=== PATIENT | male | born 1945 | race Caucasian/White ===

== ENCOUNTER → 2017-02-10 | Outpatient (CLI) | payer MEDICARE, OTHER ==
[~2017-02-10] MED LIST: ASPIRIN E.C. 8181 MG PO; FERROUS SU325 MG/TAB PO; FOLIC ACID PO; VITAMIN C500 MG PO
== END ==
LOC: COL.RAD 11:56
DX: Z12.2 Encounter for screening for malignant neoplasm of respiratory organs (principal); R91.1 Solitary pulmonary nodule; Z87.891 Personal history of nicotine dependence

== ENCOUNTER → 2017-08-07 | Outpatient (CLI) | payer MEDICARE, OTHER | LOC: COL.RAD 07:30 | DX: I71.4 Abdominal aortic aneurysm, without rupture (principal) ==

== ENCOUNTER → 2017-08-21 | Outpatient (CLI) | payer MEDICARE, OTHER | LOC: COL.RAD 11:19 | DX: I71.4 Abdominal aortic aneurysm, without rupture (principal); K42.9 Umbilical hernia without obstruction or gangrene | CPT/HCPCS: Q9967 ==

== ENCOUNTER → 2018-08-10 | Outpatient (CLI) | payer MEDICARE, OTHER | LOC: COL.RAD 07:10 | DX: I71.4 Abdominal aortic aneurysm, without rupture (principal); Z87.891 Personal history of nicotine dependence ==

== ENCOUNTER 2019-09-07 06:33 | Day surgery (SDC) | payer MEDICARE, OTHER ==
[~2019-09-07] VITALS: Ht 175.3 cm; Wt 105.0 kg
[2019-09-07 07:17] VITALS: BP 159/93; PULSE 62; TEMP 97
--- NOTE | 2019-09-07 07:35 | NUR ---
TO RM AT 0646- CALL LIGHT IN REACH AT BEDSIDE
[2019-09-07] MEDS ORDERED: NORCO 325 MG-51 TAB PO (09:49)
[2019-09-07 10:15] VITALS: BP 121/70; PULSE 57; TEMP 98.2
--- NOTE | 2019-09-07 10:15 | NUR ---
TO RM 8 PER CART FROM PACU. ALERT ORIENTED X3, TALKING TO STAFF AND . DRESSINGS CLEAN DRY AND INTACT. C/O PAIN 2/10 AND DENIES NEED FOR PAIN MED AT THIS TIME.
[2019-09-07 10:30] VITALS: BP 135/95; PULSE 71
--- NOTE | 2019-09-07 10:30 | NUR ---
RECEIVED GRAPE JUICE AND MUFFIN
[2019-09-07 10:45] VITALS: BP 134/92; PULSE 63
--- NOTE | 2019-09-07 10:45 | NUR ---
ATE 100% AND TOLERATED WELL. RECEIVED 2ND GLASS OF GRAPE JUICE. CONTINUES TO DENY NEED FOR PAIN MED.
[2019-09-07 10:48] VITALS: BP 121/81; PULSE 69
--- NOTE | 2019-09-07 11:00 | NUR ---
UP AMBULATED TO BATHROOM WITH STAND BY ASSIST. VOIDED AND TOLERATED WELL.
--- NOTE | 2019-09-07 11:10 | NUR ---
RECEIVED DISCHARGE INSTRUCTIONS AND VERBALIZED UNDERSTANDING. DISCONTINUED IV AND INT- CATHETER INTACT. PATIENT GETTING DRESSED
--- NOTE | 2019-09-07 11:20 | NUR ---
DISCHARGED PER WC BY NURSING STAFF TO PRIVATE CAR IN CARE OF - SHUBHAM.
== END 2019-09-07 12:25 | disposition home or self-care (01) ==
LOC: SDCO 06:33
DX: K81.1 Chronic cholecystitis (principal); K42.9 Umbilical hernia without obstruction or gangrene; J44.9 Chronic obstructive pulmonary disease, unspecified; Z87.891 Personal history of nicotine dependence; Z96.652 Presence of left artificial knee joint; Z95.828 Presence of other vascular implants and grafts; Z79.899 Other long term (current) drug therapy; Z79.82 Long term (current) use of aspirin
CPT/HCPCS: C1781; J0690; J1100; J1885; J2405; J2704; J2710; J3010; J7120

== ENCOUNTER → 2021-03-13 | Outpatient (CLI) | payer MEDICARE, OTHER ==
[~2021-03-13] MED LIST changes: +COZAAR 50MG50 MG/TAB PO; +FLOMAX 0.40.4 MG/CAP PO; +HCTZ12.5TAB PO; +MOBIC15 MG PO; +NORCO 325 MG-51 TAB PO
[2021-03-13 08:30] LABS: CREATININE, serum 1.09 (0.66-1.25)
== END ==
LOC: COL.RAD 07:52
PROVIDERS: Urology
DX: N40.1 Benign prostatic hyperplasia with lower urinary tract symptoms (principal); N32.1 Vesicointestinal fistula; N39.0 Urinary tract infection, site not specified; K74.69 Other cirrhosis of liver; Z90.49 Acquired absence of other specified parts of digestive tract; Z95.828 Presence of other vascular implants and grafts
CPT/HCPCS: Q9967

== ENCOUNTER 2021-04-24 08:34 | Day surgery (SDC) | payer MEDICARE, OTHER ==
[~2021-04-24] VITALS: Ht 175.3 cm; Wt 114.0 kg
[~2021-04-24 08:34] MED LIST changes: -COZAAR 50MG50 MG/TAB PO; -FLOMAX 0.40.4 MG/CAP PO; -HCTZ12.5TAB PO; -MOBIC15 MG PO
[2021-04-24 09:32] VITALS: BP 129/83; PULSE 80; TEMP 97.8
[2021-04-24] MEDS ORDERED: COZAAR 50MG50 MG/TAB PO (09:39)
[2021-04-24] MEDS ORDERED: HCTZ12.5TAB PO (09:39)
[2021-04-24] MEDS ORDERED: FLOMAX 0.40.4 MG/CAP PO (09:39)
[2021-04-24] MEDS ORDERED: MOBIC15 MG PO (09:40)
--- NOTE | 2021-04-24 09:40 | NUR ---
TO RM 4 AT 0908- CALL LIGHT IN REACH AT BEDSIDE.
[2021-04-24 11:20] VITALS: BP 105/80; PULSE 74; TEMP 98.2
--- NOTE | 2021-04-24 11:20 | NUR ---
TO RM 4 PER CART FROM ENDOSCOPY. ALERT ORIENTED X3, TALKING TO AND STAFF. AMBULATED TO RECLINER AND TOLERATED WELL. RECEIVED OJ AND MUFFIN.
[2021-04-24 11:35] VITALS: BP 121/78; PULSE 75
--- NOTE | 2021-04-24 11:35 | NUR ---
ATE 100% AND TOLERATED WELL.
--- NOTE | 2021-04-24 11:50 | NUR ---
DR WALKER INTO TALK WITH PATIENT AND HIS .
--- NOTE | 2021-04-24 12:00 | NUR ---
RECEIVED DISCHARGE INSTRUCTIONS AND VERBALIZED UNDERSTANDING. DISCONTINUED IV AND INT- CATHETER INTACT.
--- NOTE | 2021-04-24 12:10 | NUR ---
DISCHARGED PER WC BY NURSING STAFF TO PRIVATE CAR IN CARE OF SHUBHAM.
== END 2021-04-24 12:15 | disposition home or self-care (01) ==
LOC: SDCO 08:34
DX: Z12.11 Encounter for screening for malignant neoplasm of colon (principal); D12.3 Benign neoplasm of transverse colon; K64.0 First degree hemorrhoids; K64.4 Residual hemorrhoidal skin tags; K57.30 Diverticulosis of large intestine without perforation or abscess without bleeding; K63.89 Other specified diseases of intestine; J44.9 Chronic obstructive pulmonary disease, unspecified; I10 Essential (primary) hypertension; Z20.822 Contact with and (suspected) exposure to COVID-19; G47.33 Obstructive sleep apnea (adult) (pediatric); M19.90 Unspecified osteoarthritis, unspecified site; Z79.899 Other long term (current) drug therapy; Z87.891 Personal history of nicotine dependence
CPT/HCPCS: J2704; J7120

== ENCOUNTER 2021-05-08 10:20 | Inpatient (IN) | payer MEDICARE, OTHER ==
[~2021-05-08] VITALS: Ht 175.3 cm; Wt 112.5 kg
[~2021-05-08 10:20] MED LIST changes: +COZAAR 50MG50 MG/TAB PO; +FLOMAX 0.40.4 MG/CAP PO; +HCTZ12.5TAB PO; +MOBIC15 MG PO
[2021-06-19] VITALS (10 sets, daily range): BP systolic 120–158; BP diastolic 77–91; PULSE 69–85; TEMP 98.5–99.1
--- NOTE | 2021-06-19 12:22 | NUR ---
TO RM 7 AT 1144- CALL LIGHT IN REACH AT BEDSIDE.
--- NOTE | 2021-06-19 18:43 | NUR ---
Pt recently arrived to the floor from Pacu. He is alert and oriented although drowsy. Bandaids to abd with 2 of them leaking, bandaids removed, skin cleaned and new bandaids applied. Midline incision CDI. SCDs on bilaterally. Pt has no complaints of pain at this time. at bedside
--- NOTE | 2021-06-19 19:00 | NUR ---
Initial assessment done- on post op vitals- VSS, pt alert/oriented/drowsy- denies paimn, abd soft, hypoactive bowel sounds,, taking liquids/tolerating without nausea, doyle with clear yellow urine, abd lap sites x5 w/bandaids- all dry except the one to the right of belly button-- bandaid removed by previous shift and small gauze dressing applied- has some drainage- will continure to watch. SCD,s on
--- NOTE | 2021-06-19 21:00 | NUR ---
Abd lap site to the right of belly button with bloody drainage-- new dressing applied at this time- no active bleeding seen from incision
[2021-06-20 04:09] VITALS: BP 126/73; PULSE 70; TEMP 98.4
--- NOTE | 2021-06-20 05:30 | NUR ---
Quiet night-- VSS, slept well with home CPAP on all night. States abd pain 2/,States the tylenol/motrin combination is working well for pain control- Had 900cc clear yellow urine from Salazar. Abd rounded-soft,denies flatus-active bowel sounds, no drainage from lap site since new dressing was applied earlier- so new bandaid applied at this time- all sites clean and dry- Taking some clear liquids without nausea
[2021-06-20 06:59] LABS: BASO % 0.1 % (0.0-2.0); GRAN # 8.7 (1.4-6.5); GRAN % 81.5 % (42.2-75.2); HEMOGLOBIN 11.9 g/dl (13.5-18.0); LYMPH % 9.1 % (20.0-51.0); MEAN CELL VOLUME 97 fl (80.0-100.0); MEAN CORPUSCULAR HEMOGLOBIN 32 pg (27.0-31.0); MEAN CORPUSCULAR HGB CONC 33 g/dl (33.0-37.0); MEAN PLATELET VOLUME 10.2 fl (7.4-10.4); MONO % 8.9 % (1.7-9.3); PLATELET COUNT 166 K/mm3 (130-400); RED BLOOD COUNT 3.75 M/mm3 (4.20-5.60); REDCELL DISTRIBUTION WIDTH-CV 14.6 % (11.5-14.5)
[2021-06-20 07:08] LABS: HEMATOCRIT 36.4 % (42.0-52.0)
[2021-06-20 07:14] LABS: CALCIUM 8.3 mg/dL (8.4-10.2); CREATININE, serum 1.2 (0.66-1.25); MAGNESIUM 1.9 mg/dL (1.6-2.3); PHOSPHOROUS 3.6 mg/dL (2.5-4.5); POTASSIUM 4.2 mmol/L (3.4-5.0)
[2021-06-20 07:27] VITALS: BP 110/70; PULSE 71; TEMP 98
--- NOTE | 2021-06-20 08:00 | NUR ---
PATIENT IS ALERT AND ORIENTED X4. PATIENT HAS 5 BANDAIDS TO ROBOTIC LAP SITES. PATIENT HAS IV TO LEFT FOREARM INT. DIET OF CLEAR LIQUIDS BEING TOLERATED BY PATIENT. PATIENT AMBULATED DOWN HALLWAY THIS AM. NO FURTHER NEEDS AT THIS TIME. HEAD TO TOE ASSESSMENT COMPLETE. CALL LIGHT WITHIN REACH.
--- NOTE | 2021-06-20 10:38 | NUR ---
Sw met with pt( present) who stated his preference to return home once medically stable. The pt lives at home with his , Ann (ph [phone]). The pt is independent on all ADLs, still drives and uses a CPAP machine at home (present in room). The pt informed Sw that he has a DPOA-HC and has brought it in many times to the hospital. The pt PCP is Cheyenne Bhagat and gets his medications from [facility]. The pt has never used any HH services before. No other needs stated at this time. Sw to await further recommendations and follow up as needed. D/C: Home
[2021-06-20 12:00] VITALS: BP 132/81; PULSE 68; TEMP 97.6
[2021-06-20 15:35] VITALS: BP 104/71; PULSE 78; TEMP 98
--- NOTE | 2021-06-20 18:03 | NUR ---
PATIENT HAD BOWEL MOVEMENT, INCONTINENT, CARE WAS PROVIDED.AMBULATING HALLS THROUGHOUT THE DAY. PATIENT TOLERATING DIET WELL. IV TO INT. BY BEDSIDE THROUGHOUT THE DAY.
[2021-06-20 19:52] VITALS: BP 112/58; PULSE 60; TEMP 99
--- NOTE | 2021-06-20 20:00 | NUR ---
Report received, assumed care for commission associate. Assessment complete. A&Ox3. Denies pain/nausea/shortness of breath. VS stable. Tolerating diet. INT to left forearm flushes without difficulty. States he hasnt had any other loose stools thus far. Lap sites x5-bandaids with scant amount of old drainage. Low transverse abdominal incision with gauze/medipore-CDI. Salazar cath with clear yellow urine. SCDs bilat. IS at bedside-encouraged use. Denies current needs. Call light in reach. Will monitor.
[2021-06-21 00:14] VITALS: BP 113/67; PULSE 73; TEMP 98.3
[2021-06-21 04:33] VITALS: BP 113/71; PULSE 72; TEMP 98.1
--- NOTE | 2021-06-21 05:09 | NUR ---
Rested well this shift. Denied pain/nausea/shortness of breath. VS remained stable. Tylenol/motrin adequate for pain control. Dressings remain CDI. Salazar cath with clear yellow urine. Denied an more loose stools. Tolerating diet. Denies current needs. call light in reach. WIll monitor.
--- NOTE | 2021-06-21 07:30 | NUR ---
Patient sitting up in chair. Reports a loose stool this am. No Incontience. Low fiber breakfast ordered. Abdomen soft, passing flatus. Doyle to DD with yellow clear urine. Education provided for doyle removal. Int. Activity encouraged.
[2021-06-21 07:52] VITALS: BP 109/67; PULSE 85; TEMP 98.4
[2021-06-21 11:42] VITALS: BP 109/71; PULSE 67; TEMP 98.4
--- NOTE | 2021-06-21 11:43 | NUR ---
Patient sitting up in chair with at bedside. Hands on doyle education given to both. Patient not interest in leg bag. Will monitor.
--- NOTE | 2021-06-21 13:28 | NUR ---
Patient sleeping soundly. Patient at bedside.
[2021-06-21 16:13] VITALS: BP 124/75; PULSE 80; TEMP 98.5
[2021-06-21] MEDS ORDERED: NORCO 325 MG-51 TAB PO (17:10)
--- NOTE | 2021-06-21 18:55 | NUR ---
Patient ready for discharge. rounded this evening. Discharge paperwork reviewed. Int dc. We reviewed diet & activity restrictions. Incision cares reviewed. Medication list, last dose taken & pain medication reviewed. Denies questions about doyle cath & has been empting doyle independently this afternoon. Patient and his deny any questions or concerns & know the importance of calling doctors office if any questions arise. Patient wheeld out with all belongings.
== END 2021-06-21 19:00 | disposition home or self-care (01) | DRG 330 ==
LOC: SURG 06-06 07:30 → INPTSU 06-19 11:31 → SURG 06-19 11:31 → MEDICAL 06-20 11:25 → SURG 06-20 11:25
PROVIDERS: ADMIT Surgery
PROC: 0DNU4ZZ Release Omentum, Percutaneous Endoscopic Approach (ICD-10-PCS; 2021-06-19)
PROC: 8E0W4CZ Robotic Assisted Procedure of Trunk Region, Percutaneous Endoscopic Approach (ICD-10-PCS; 2021-06-19)
PROC: 0DTN4ZZ Resection of Sigmoid Colon, Percutaneous Endoscopic Approach (ICD-10-PCS; principal; 2021-06-19 13:30)
DX: K57.32 Diverticulitis of large intestine without perforation or abscess without bleeding (principal); N32.1 Vesicointestinal fistula
CPT/HCPCS: A4314; A9284; J0330; J0690; J1100; J1170; J1650; J2250; J2370; J2405; J2704; J2795; J3010; J7120

== ENCOUNTER 2021-12-17 08:34 | Inpatient (IN) | payer MEDICARE, OTHER ==
[~2021-12-17] VITALS: Ht 175.3 cm; Wt 111.0 kg
[2021-12-17 09:11] LABS: ARTERIAL BLD GAS O2 SATURATION 97.1 % (92-100); ARTERIAL BLD GAS TCO2 CT 21.6; ARTERIAL BLOOD GAS BASE EXCESS -1.2 (-2-2); ARTERIAL BLOOD GAS HCO3 20.7 meq/L (22-26); ARTERIAL BLOOD GAS PCO2 28.1 mmHg (35-45); ARTERIAL BLOOD GAS PO2 81.6 mmHg (80-100); ARTERIAL BLOOD GAS pH 7.49 (7.35-7.45)
[2021-12-17 09:31] LABS: HEMATOCRIT 41.1 % (42.0-52.0); HEMOGLOBIN 14.7 g/dl (13.5-18.0); MEAN CELL VOLUME 84 fl (80.0-100.0); MEAN CORPUSCULAR HEMOGLOBIN 30 pg (27-31); MEAN CORPUSCULAR HGB CONC 36 g/dl (33.0-37.0); MEAN PLATELET VOLUME 9.3 fl (7.4-10.4); PLATELET COUNT 172 K/mm3 (130-400); RED BLOOD COUNT 4.89 M/mm3 (4.20-5.60); REDCELL DISTRIBUTION WIDTH-CV 13.8 % (11.5-14.5)
[2021-12-17 09:49] LABS: ALBUMIN 2.9 gm/dL (3.4-4.8); BILIRUBIN,TOTAL 1.8 mg/dL (0.2-1.2); CALCIUM 8.6 mg/dL (8.4-10.2); CREATININE, serum 1.07 mg/dL (0.72-1.25); POTASSIUM 3.7 mmol/L (3.5-4.5)
[2021-12-17 09:58] LABS: TROPONIN-I 0.05 ng/mL (0.00-0.033)
[2021-12-17 10:06] LABS: BAND 8 % (0-10); LYMPHOCYTE 5 % (20.0-51.0); NEUTROPHILS 86 % (42.0-75.2)
[2021-12-17 10:07] LABS: PLATELET ESTIMATE NORMAL (NORMAL)
[2021-12-17 12:05] LABS: C-REACTIVE PROTEIN 11.22 mg/dL (0.00-0.50)
--- NOTE | 2021-12-17 13:04 | NUR ---
CALLED CRITICAL LAB VALUE 3HR TROPONIN: 0.[address] WELLINGTON
[2021-12-17 17:06] VITALS: BP 130/77; PULSE 91; TEMP 98.3
--- NOTE | 2021-12-17 19:38 | NUR ---
PT HAD AN UNEVENTFUL AFTERNOON. RECEIVED ALL DOSES OF MEDICATIONS ORDERED BY THE PROVIDER AT ADMIT. THE PATIENT IS NOW ON 10L HFNC WITH A BUBBLER. THE PATIENT DENIES ANY ISSUES AT THIS TIME. NO PAIN, AND NO DIFFICULTY BREATHING. NO FURTHER CONCERNS.
[2021-12-17 21:27] VITALS: BP 120/76; PULSE 89; TEMP 97.8
[2021-12-18] VITALS (8 sets, daily range): BP systolic 103–145; BP diastolic 79–90; PULSE 82–147; TEMP 97.5–98.3
--- NOTE | 2021-12-18 03:44 | NUR ---
patient c/o not sleeping well, call placed to Kary ABAD- see new order, udpated patient on new order and plan of care, O2@10L per NC in use, call pacheco w/i reach, will continue to monitor.
[2021-12-18 06:38] LABS: HEMATOCRIT 39.7 % (42.0-52.0); HEMOGLOBIN 13.8 g/dl (13.5-18.0); MEAN CELL VOLUME 86 fl (80.0-100.0); MEAN CORPUSCULAR HEMOGLOBIN 30 pg (27-31); MEAN CORPUSCULAR HGB CONC 35 g/dl (33.0-37.0); PLATELET COUNT 176 K/mm3 (130-400); REDCELL DISTRIBUTION WIDTH-CV 13.9 % (11.5-14.5)
[2021-12-18 06:55] LABS: ALBUMIN 2.7 gm/dL (3.4-4.8); C-REACTIVE PROTEIN 9.07 mg/dL (0.00-0.50); CALCIUM 8.8 mg/dL (8.4-10.2); CREATININE, serum 1.07 mg/dL (0.72-1.25); POTASSIUM 3.8 mmol/L (3.5-4.5); TOTAL PROTEIN 6.5 gm/dL (6.2-8.1)
--- NOTE | 2021-12-18 07:04 | NUR ---
PT SLEEPING AT THIS TIME. RECEIVED REPORT FROM NICOLE FRANKEL THAT THE PATIENT HAD RECEIVED A LATE IN THE NIGHT DOSE OF MELATONIN.
[2021-12-18 07:18] LABS: THYROID STIMULATING HORMONE 0.631 uIU/mL (0.350-4.940)
[2021-12-18 08:00] LABS: BAND 6 % (0-10); LYMPHOCYTE 2 % (20.0-51.0); NEUTROPHILS 89 % (42.0-75.2); PLATELET ESTIMATE NORMAL (NORMAL)
--- NOTE | 2021-12-18 12:52 | NUR ---
WHEN GIVING 1200 MEDICATION, THE PATIENT STATES THAT HE IS SEEING BLACK BUGS. HE STATES THAT HE FEELS THOUGH HE MAY BE DELERIOUS FROM LACK OF SLEEP. HOWEVER, AFTER DISCUSSION WITH DR. WELLINGTON, WE WILL BE DOING AN ABG, TO VERIFY IF IT IS DUE TO HYPOXIA. NO OTHER CONCERNS.
--- NOTE | 2021-12-18 13:13 | NUR ---
Due to patient mental status, phone call made to the patient's Annamarie ([phone]) to complete intake. Patient is independent with his ADL's and does not utilize any DME to assist with mobility. Patient does not have any current oxygen needs at home. PCP is Dr. Parham and he utilizes [facility] for perscriptions. Patient's believes that he does have a DPOA-HC on file with Dr. Parham's office. Message left for the nurse casework manager Loren to obtain a copy. Discharge plan: Home pending PT/OT rec's
--- NOTE | 2021-12-18 13:34 | NUR ---
Loren from [facility] called saying they do have a copy of the patient's DPOA-HC on file and will fax a copy of it to the medical unit.
[2021-12-18 13:35] LABS: ARTERIAL BLD GAS TCO2 CT 22.2; ARTERIAL BLOOD GAS BASE EXCESS 0.5 (-2-2); ARTERIAL BLOOD GAS HCO3 21.4 meq/L (22-26); ARTERIAL BLOOD GAS PCO2 25.2 mmHg (35-45); ARTERIAL BLOOD GAS PO2 102.2 mmHg (80-100); ARTERIAL BLOOD GAS pH 7.55 (7.35-7.45)
--- NOTE | 2021-12-18 14:36 | NUR ---
SW received the patient's DPOA-HC, via fax, and placed it in the patient's chart. The patient's DPOA-HC is his , Annamarie. The alternate is Harrison Solorio (#[phone]).
--- NOTE | 2021-12-18 23:50 | NUR ---
Patient desat to 62% - CAT call inititated, RT, PA, Garnisher, ICU charge, med/surg charge responded, patient put on bipap at bedside, SPO2 responded well increasing to 94%, Pulse stabalized at 100 beats per min, patient moved to ICU bed 5, ICU Elina RN took over care at this time.
[2021-12-19] VITALS (644 sets, daily range): BP systolic 117–147; BP diastolic 75–100; PULSE 64–102; TEMP 98.1–99.8; O2SAT 73–100
--- NOTE | 2021-12-19 00:06 | NUR ---
Pulse 145 SPO2@86% @13L, increased to 15L at SPO2 91%, Call placed to RT- in route to patient room, Call placed to Kary ABAD- NON: EKG stat.
--- NOTE | 2021-12-19 00:24 | NUR ---
EKG with A flutter with RVR- Notified Kary ABAD- will transfer to ICU, awaiting further orders.
--- NOTE | 2021-12-19 01:06 | NUR ---
PT TRANSFERRED FROM MEDICAL FLOOR VIA BED. MOVED TO ICU BED AND CONNECTED TO MONITORING. HR CURRENTLY SR 102. PT ON BIPAP AT 100%. DENIES PAIN, SOB, OR ANY DISTRESS. [id number]. CALL LIGHT IN HAND, URINAL AT BEDSIDE. DISCUSSED POC FOR THE NIGHT, CONTINUE BIPAP AND MONITOR TELEMETRY. PT STATES NO QUESTIONS OR CONCERNS. WILL CONTINUE TO MONITOR.
[2021-12-19 01:27] LABS: ARTERIAL BLD GAS O2 SATURATION 94.2 % (92-100); ARTERIAL BLD GAS TCO2 CT 21.2; ARTERIAL BLOOD GAS BASE EXCESS -2.7 (-2-2); ARTERIAL BLOOD GAS HCO3 20.3 meq/L (22-26); ARTERIAL BLOOD GAS PCO2 30.8 mmHg (35-45); ARTERIAL BLOOD GAS PO2 69.9 mmHg (80-100); ARTERIAL BLOOD GAS pH 7.44 (7.35-7.45)
[2021-12-19 01:48] LABS: HEMATOCRIT 40.6 % (42.0-52.0); HEMOGLOBIN 14.5 g/dl (13.5-18.0); MEAN CELL VOLUME 85 fl (80.0-100.0); MEAN CORPUSCULAR HEMOGLOBIN 30 pg (27-31); MEAN CORPUSCULAR HGB CONC 36 g/dl (33.0-37.0); MEAN PLATELET VOLUME 9.5 fl (7.4-10.4); PLATELET COUNT 189 K/mm3 (130-400); REDCELL DISTRIBUTION WIDTH-CV 13.7 % (11.5-14.5)
[2021-12-19 02:00] LABS: PARTIAL THROMBOPLASTIN TIME 27.4 SECONDS (26.0-37.0)
[2021-12-19 02:04] LABS: C-REACTIVE PROTEIN 7.95 mg/dL (0.00-0.50); CALCIUM 8.9 mg/dL (8.4-10.2); CREATININE, serum 0.89 mg/dL (0.72-1.25); MAGNESIUM 1.8 mg/dL (1.6-2.6); POTASSIUM 4.2 mmol/L (3.5-4.5)
[2021-12-19 04:10] LABS: ARTERIAL BLD GAS O2 SATURATION 94.3 % (92-100); ARTERIAL BLD GAS TCO2 CT 25.8; ARTERIAL BLOOD GAS BASE EXCESS 1.9 (-2-2); ARTERIAL BLOOD GAS HCO3 24.8 meq/L (22-26); ARTERIAL BLOOD GAS PCO2 33.8 mmHg (35-45); ARTERIAL BLOOD GAS PO2 68.9 mmHg (80-100); ARTERIAL BLOOD GAS pH 7.48 (7.35-7.45)
--- NOTE | 2021-12-19 07:42 | NUR ---
Patient very restless and has needed Ativan per CIWA protocol overnight. Currently patient is setting off bed alarm quite frequently as he sits up and tries to get out of bed; needs frequent redirection and reminders that he can lay back and go to sleep in this bed and doesn't need to go anywhere else.
--- NOTE | 2021-12-19 08:05 | NUR ---
Called and left message with Dr. Richard in regards to critical lab value; lab called at 0801 with a critical D-dimer of >[phone]
--- NOTE | 2021-12-19 10:11 | NUR ---
The patient was transferred to the ICU and was placed on a bipap. SW to continue to monitor.
[2021-12-19 13:42] LABS: ARTERIAL BLD GAS TCO2 CT 24.9; ARTERIAL BLOOD GAS BASE EXCESS 0.3 (-2-2); ARTERIAL BLOOD GAS HCO3 23.8 meq/L (22-26); ARTERIAL BLOOD GAS PCO2 35.3 mmHg (35-45); ARTERIAL BLOOD GAS PO2 89.9 mmHg (80-100); ARTERIAL BLOOD GAS pH 7.45 (7.35-7.45)
--- NOTE | 2021-12-19 15:46 | NUR ---
Dr. Jaffe and Dr. Richard consulted about starting Precedex drip as AMS was increasing and patient was agitated and trying to get out of bed. Patient also pulls at lines and BiPAP mask tubing; needs frequent redirection and reassurance.
[2021-12-20] VITALS (892 sets, daily range): BP systolic 90–132; BP diastolic 67–99; PULSE 62–83; TEMP 96.4–98.8; O2SAT 75–100
--- NOTE | 2021-12-20 01:00 | NUR ---
PRECEDEX IP PUT TO STANDBY AT THIS TIME PT IN SINUS DYSRHYTHMIA FLUCCTUATING FROM 48-65. WILL CONTINUE TO MONITOR.
--- NOTE | 2021-12-20 06:30 | NUR ---
Patient did well overnight; he slept all night and was alert and oriented when woken up for a bath. Precedex put on hold and CIWA scores did not warrant the administratio of Ativan.
[2021-12-20 06:44] LABS: BASO % 0.1 % (0.0-2.0); EOS # 0.2 K/mm3 (0.0-0.7); EOS % 2.9 % (0.0-4.0); GRAN # 7.2 K/mm3 (1.4-6.5); GRAN % 86.7 % (42.2-75.2); HEMATOCRIT 39.6 % (42.0-52.0); HEMOGLOBIN 13.6 g/dl (13.5-18.0); LYMPH # 0.4 K/mm3 (1.2-3.4); LYMPH % 5.3 % (20.0-51.0); MEAN CELL VOLUME 88 fl (80.0-100.0); MEAN CORPUSCULAR HEMOGLOBIN 30 pg (27-31); MEAN CORPUSCULAR HGB CONC 34 g/dl (33.0-37.0); MEAN PLATELET VOLUME 9.7 fl (7.4-10.4); MONO # 0.3 K/mm3 (0.1-0.6); MONO % 3.9 % (1.7-9.3); PLATELET COUNT 156 K/mm3 (130-400); RED BLOOD COUNT 4.49 M/mm3 (4.20-5.60); REDCELL DISTRIBUTION WIDTH-CV 14.3 % (11.5-14.5)
[2021-12-20 06:51] LABS: ARTERIAL BLD GAS O2 SATURATION 97.3 % (92-100); ARTERIAL BLD GAS TCO2 CT 28.7; ARTERIAL BLOOD GAS BASE EXCESS 2.5 (-2-2); ARTERIAL BLOOD GAS HCO3 27.3 meq/L (22-26); ARTERIAL BLOOD GAS PCO2 43.1 mmHg (35-45); ARTERIAL BLOOD GAS PO2 94.1 mmHg (80-100); ARTERIAL BLOOD GAS pH 7.42 (7.35-7.45)
[2021-12-20 06:52] LABS: ALBUMIN 2.4 gm/dL (3.4-4.8); BILIRUBIN,TOTAL 0.8 mg/dL (0.2-1.2); C-REACTIVE PROTEIN 13.61 mg/dL (0.00-0.50); CALCIUM 8.6 mg/dL (8.4-10.2); CREATININE, serum 0.96 mg/dL (0.72-1.25); MAGNESIUM 2.6 mg/dL (1.6-2.6); POTASSIUM 4.6 mmol/L (3.5-4.5); TOTAL PROTEIN 6.1 gm/dL (6.2-8.1)
--- NOTE | 2021-12-20 20:09 | NUR ---
Unable to collect sputum specimen as patient is not coughing enough for sample.
[2021-12-21] VITALS (711 sets, daily range): BP systolic 113–132; BP diastolic 64–81; PULSE 72–147; TEMP 97.8–99; O2SAT 65–100
[2021-12-21 02:15] LABS: BASO % 0.2 % (0.0-2.0); EOS # 0.2 K/mm3 (0.0-0.7); EOS % 2.1 % (0.0-4.0); GRAN # 9.4 K/mm3 (1.4-6.5); GRAN % 87.9 % (42.2-75.2); HEMATOCRIT 40.9 % (42.0-52.0); LYMPH # 0.5 K/mm3 (1.2-3.4); LYMPH % 4.2 % (20.0-51.0); MEAN CELL VOLUME 87 fl (80.0-100.0); MEAN CORPUSCULAR HEMOGLOBIN 30 pg (27-31); MEAN CORPUSCULAR HGB CONC 34 g/dl (33.0-37.0); MEAN PLATELET VOLUME 9.7 fl (7.4-10.4); MONO # 0.5 K/mm3 (0.1-0.6); MONO % 4.5 % (1.7-9.3); PLATELET COUNT 145 K/mm3 (130-400); RED BLOOD COUNT 4.68 M/mm3 (4.20-5.60); REDCELL DISTRIBUTION WIDTH-CV 14.4 % (11.5-14.5)
[2021-12-21 02:30] LABS: CALCIUM 8.7 mg/dL (8.4-10.2); CREATININE, serum 0.97 mg/dL (0.72-1.25); MAGNESIUM 2.5 mg/dL (1.6-2.6); PHOSPHOROUS 4.4 mg/dL (2.3-4.7); POTASSIUM 4.5 mmol/L (3.5-4.5)
[2021-12-21 02:36] LABS: PARTIAL THROMBOPLASTIN TIME 34.3 SECONDS (26.0-37.0)
--- NOTE | 2021-12-21 05:04 | NUR ---
TELE A FLUTTER WITH RVR AT 0140. PT SLEEPING AT THIS TIME. BP 110'S/70'S. WOKE PT, DENIES SYMPTOMS. HR 145-150. NOTIFIED SIENA BARNARD. EKG OBTAINED. ORDERS PLACED FOR HEPARIN GTT, HEPARIN BOLUS, CARDIZEM BOLUS, AND CARDIZEM GTT. GIVEN DOCUMENTED IN MAR. WITH CARDIZEM BOLUS, BP 90'S/60'S. NOTIFIED SIENA BARNARD. CONTINUE TO CARDIZEM GTT AND SIENA BARNARD PLACED ORDER FOR NS BOLUS AND MAINTENANCE FLUIDS. GIVEN DOCUMENTED IN MAR. CARDIZEM GTT INCREASED PER PROTOCOL HR CONTINUED TO SUSTAIN IN THE 140-150'S. PT THEN CONVERTED TO SINUS RHYTHM AT 0301. NOTIFIED GILMAR BARNARD AND SHE STATED TO CONTINUE CARDIZEM GTT AND SLOWLY DECREASE GTT RATE TO LOWEST ORDERED DOSE. PT RESTING IN BED. CONTINUES TO BE IN SR WITH RATE 70'S. BP 119/75. CALL LIGHT WITHIN REACH. BED ALARM ON. PT RESTING WITH EYES CLOSED.
--- NOTE | 2021-12-21 07:00 | NUR ---
Pt resting in bed on bipap. Pt's VSS. Pt has heparin, cardizem, and ns running. will continue to monitor.
--- NOTE | 2021-12-21 19:15 | NUR ---
Received report from NICOLE Rodas.
--- NOTE | 2021-12-21 20:00 | NUR ---
Patient resting quietly in bed wearing BiPap, tolerating well. Receiving 14/10 with 60% FiO2. Saturation sustaining mid 90s. Other vitals within normal limits. Denies any pain or discomfort. Receiving heparin and cardizem drips. PO amiodarone to be initiated this evening and cardizem drip to subsequently be discontinued.
[2021-12-22] VITALS (653 sets, daily range): BP systolic 136–153; BP diastolic 85–92; PULSE 72–86; TEMP 97–98; O2SAT 64–99
[2021-12-22 05:25] LABS: BASO % 0.1 % (0.0-2.0); EOS # 0.1 K/mm3 (0.0-0.7); EOS % 0.9 % (0.0-4.0); GRAN # 10.1 K/mm3 (1.4-6.5); GRAN % 89.9 % (42.2-75.2); HEMATOCRIT 38.4 % (42.0-52.0); LYMPH # 0.5 K/mm3 (1.2-3.4); LYMPH % 4.2 % (20.0-51.0); MEAN CELL VOLUME 88 fl (80.0-100.0); MEAN CORPUSCULAR HEMOGLOBIN 30 pg (27-31); MEAN CORPUSCULAR HGB CONC 34 g/dl (33.0-37.0); MEAN PLATELET VOLUME 9.3 fl (7.4-10.4); MONO # 0.5 K/mm3 (0.1-0.6); PLATELET COUNT 154 K/mm3 (130-400); RED BLOOD COUNT 4.35 M/mm3 (4.20-5.60); REDCELL DISTRIBUTION WIDTH-CV 14.2 % (11.5-14.5)
[2021-12-22 05:42] LABS: ARTERIAL BLD GAS O2 SATURATION 92.8 % (92-100); ARTERIAL BLD GAS TCO2 CT 26.9; ARTERIAL BLOOD GAS BASE EXCESS 0.9 (-2-2); ARTERIAL BLOOD GAS HCO3 25.7 meq/L (22-26); ARTERIAL BLOOD GAS PCO2 41.6 mmHg (35-45); ARTERIAL BLOOD GAS PO2 63.7 mmHg (80-100); ARTERIAL BLOOD GAS pH 7.41 (7.35-7.45)
[2021-12-22 05:45] LABS: CALCIUM 8.5 mg/dL (8.4-10.2); CREATININE, serum 0.83 mg/dL (0.72-1.25); POTASSIUM 4.6 mmol/L (3.5-4.5)
[2021-12-22 11:04] LABS: MAGNESIUM 2.4 mg/dL (1.6-2.6); PHOSPHOROUS 3.6 mg/dL (2.3-4.7)
--- NOTE | 2021-12-22 11:53 | NUR ---
Patient did well overnight; no Ativan was needed for CIWA scoring and Precedex remained off. Cardizem was stopped and PO amio initiated.
--- NOTE | 2021-12-22 19:18 | NUR ---
Received report from NICOLE Atkins. All medications verified and all questions answered. Patient resting in bed watching TV on bipap at 60% fio2. VSS. Patient on heparin gtt at 16mls/hr. Salazar catheter patent to dependent drainage with clear yellow urine. No concerns or complaints noted from patient at this time. Will resume care of patient at this time.
[2021-12-23] VITALS (733 sets, daily range): BP systolic 36–161; BP diastolic 17–105; PULSE 56–93; TEMP 97.5–98.7; O2SAT 70–100
[2021-12-23 04:55] LABS: ARTERIAL BLD GAS O2 SATURATION 89.5 % (92-100); ARTERIAL BLD GAS TCO2 CT 24.9; ARTERIAL BLOOD GAS BASE EXCESS -0.5 (-2-2); ARTERIAL BLOOD GAS HCO3 23.8 meq/L (22-26); ARTERIAL BLOOD GAS PCO2 37.9 mmHg (35-45); ARTERIAL BLOOD GAS PO2 53.2 mmHg (80-100); ARTERIAL BLOOD GAS pH 7.42 (7.35-7.45)
[2021-12-23 06:32] LABS: HEMATOCRIT 39.4 % (42.0-52.0); HEMOGLOBIN 12.6 g/dl (13.5-18.0); MEAN CELL VOLUME 92 fl (80.0-100.0); MEAN CORPUSCULAR HEMOGLOBIN 29 pg (27-31); MEAN CORPUSCULAR HGB CONC 32 g/dl (33.0-37.0); MEAN PLATELET VOLUME 9.9 fl (7.4-10.4); PLATELET COUNT 170 K/mm3 (130-400); RED BLOOD COUNT 4.28 M/mm3 (4.20-5.60); REDCELL DISTRIBUTION WIDTH-CV 14.2 % (11.5-14.5)
[2021-12-23 06:50] LABS: CALCIUM 8.5 mg/dL (8.4-10.2); CREATININE, serum 0.78 mg/dL (0.72-1.25); MAGNESIUM 2.5 mg/dL (1.6-2.6); PHOSPHOROUS 3.2 mg/dL (2.3-4.7); POTASSIUM 4.2 mmol/L (3.5-4.5)
--- NOTE | 2021-12-23 07:28 | NUR ---
Patient was agitated and restless overnight and condition seems to have worsened; patient pulling off mask and taking cords and blood pressure cuff off this morning. Patient still getting q2hr CIWA Ativan dosing and did receive doses of Ativan overnight.
[2021-12-23 08:25] LABS: BAND 2 % (0-10); LYMPHOCYTE 3 % (20.0-51.0); NEUTROPHILS 88 % (42.0-75.2)
[2021-12-23 08:27] LABS: HYPOCHROMIA 1+; PLATELET ESTIMATE NORMAL (NORMAL)
[2021-12-23 15:12] LABS: ARTERIAL BLD GAS TCO2 CT 27.3; ARTERIAL BLOOD GAS BASE EXCESS -0.7 (-2-2); ARTERIAL BLOOD GAS HCO3 25.7 meq/L (22-26); ARTERIAL BLOOD GAS PCO2 49.6 mmHg (35-45); ARTERIAL BLOOD GAS pH 7.33 (7.35-7.45)
[2021-12-23 15:13] LABS: ARTERIAL BLOOD GAS PO2 122.4 mmHg (80-100)
[2021-12-23 16:54] LABS: HEMOGLOBIN 12.3 g/dl (13.5-18.0)
[2021-12-23 16:57] LABS: HEMATOCRIT 35.3 % (42.0-52.0)
[2021-12-23 17:05] LABS: GASTROCCULT POSITIVE
--- NOTE | 2021-12-23 18:00 | NUR ---
Patient intubated today with ART line placed. Time out was 1241, with this nurse, Raegan, RT, and To, MEDICAL AFFAIRS MANAGER at the bedside. Tube was placed with no issues and ART line was placed immediately after at 1244. OG was placed at 1245 and both ET and OG tubes were verified by auscultation and x-ray. Patient became very hypotensive following procedures and Levophed was started and then titrated to keep patient normotensive.
--- NOTE | 2021-12-23 18:20 | NUR ---
No sedation vacation performed as patient was newly intubated this morning and was not tolerating the ventilator before he was adequately sedated; patient proned at 1600 so no sedation vacation will be performed tonight.
[2021-12-23 19:19] LABS: ARTERIAL BLD GAS O2 SATURATION 97.4 % (92-100); ARTERIAL BLD GAS TCO2 CT 25.5; ARTERIAL BLOOD GAS BASE EXCESS -1.8 (-2-2); ARTERIAL BLOOD GAS HCO3 24.1 meq/L (22-26); ARTERIAL BLOOD GAS PCO2 45.2 mmHg (35-45); ARTERIAL BLOOD GAS PO2 105.7 mmHg (80-100); ARTERIAL BLOOD GAS pH 7.35 (7.35-7.45)
--- NOTE | 2021-12-23 19:58 | NUR ---
Received report from NICOLE Atkins. All medications verified and all questions answered. Patient intubated and sedated in prone position.Fentanyl gtt runing at 6.3mls/hr, propofol gtt running at 25mls.hr and levophed gtt running at 54.6mls/hr. VSS. Vent on AC mode with settings of 500TV, 15 PEEP, 75% FIO2 and 24RR. Salazar patent to dependent drainage with clear yellow urine. ETT at 25 at the teeth and OG at 65 at the lip. Tube feeds running at 15mls/hr. Will resume care of patient at this time.
[2021-12-24] VITALS (967 sets, daily range): BP systolic 91–172; BP diastolic 41–82; PULSE 54–64; TEMP 96.3–97.9; O2SAT 75–100
--- NOTE | 2021-12-24 00:42 | NUR ---
Patient tube feeds stopped and placed on hold per Dr. Larson. Patient having increased amount of tatyana red blood being suctioned from ETT and coffee ground looking residuals from OG. Provider did not want patient on LIS.
[2021-12-24 00:50] LABS: HEMATOCRIT 41.8 % (42.0-52.0); HEMOGLOBIN 13.9 g/dl (13.5-18.0); MEAN CELL VOLUME 91 fl (80.0-100.0); MEAN CORPUSCULAR HEMOGLOBIN 30 pg (27-31); MEAN CORPUSCULAR HGB CONC 33 g/dl (33.0-37.0); MEAN PLATELET VOLUME 9.9 fl (7.4-10.4); PLATELET COUNT 205 K/mm3 (130-400); RED BLOOD COUNT 4.62 M/mm3 (4.20-5.60); REDCELL DISTRIBUTION WIDTH-CV 14.6 % (11.5-14.5)
[2021-12-24 01:07] LABS: BAND 6 % (0-10); EOSINOPHIL 1 % (0-4); LYMPHOCYTE 5 % (20.0-51.0); METAMYELOCYTE 1 % (0-0); NEUTROPHILS 83 % (42.0-75.2)
[2021-12-24 01:08] LABS: PLATELET ESTIMATE NORMAL (NORMAL)
[2021-12-24 01:10] LABS: INR 1.4 (0.8-3.0); PROTHROMBIN TIME 15.9 SECONDS (9.7-12.8)
[2021-12-24 03:05] LABS: ARTERIAL BLD GAS O2 SATURATION 98.7 % (92-100); ARTERIAL BLD GAS TCO2 CT 24.7; ARTERIAL BLOOD GAS BASE EXCESS -1.1 (-2-2); ARTERIAL BLOOD GAS HCO3 23.5 meq/L (22-26); ARTERIAL BLOOD GAS PCO2 39.1 mmHg (35-45)
[2021-12-24 03:08] LABS: ARTERIAL BLOOD GAS PO2 143.2 mmHg (80-100)
--- NOTE | 2021-12-24 05:02 | NUR ---
Sedation vacation not attempted at this time d/t patient being in proned position.
[2021-12-24 05:31] LABS: HEMATOCRIT 38.9 % (42.0-52.0); HEMOGLOBIN 13.2 g/dl (13.5-18.0); MEAN CELL VOLUME 88 fl (80.0-100.0); MEAN CORPUSCULAR HEMOGLOBIN 30 pg (27-31); MEAN CORPUSCULAR HGB CONC 34 g/dl (33.0-37.0); MEAN PLATELET VOLUME 9.9 fl (7.4-10.4); PLATELET COUNT 175 K/mm3 (130-400); RED BLOOD COUNT 4.42 M/mm3 (4.20-5.60); REDCELL DISTRIBUTION WIDTH-CV 14.4 % (11.5-14.5)
[2021-12-24 05:49] LABS: CALCIUM 8.4 mg/dL (8.4-10.2); CREATININE, serum 0.83 mg/dL (0.72-1.25); MAGNESIUM 2.3 mg/dL (1.6-2.6); PHOSPHOROUS 3.7 mg/dL (2.3-4.7); POTASSIUM 4.5 mmol/L (3.5-4.5)
--- NOTE | 2021-12-24 06:30 | NUR ---
Report received from NICOLE Joyner; patient had some episodes of hypotension overnight and Levophed was titrated accordiingly. Tube feeds were also stopped per ERIC and OG was then clamped due to positive gastric occult and coffee-ground type drainage in the OG tube.
[2021-12-24 07:22] LABS: BAND 3 % (0-10); EOSINOPHIL 1 % (0-4); LYMPHOCYTE 11 % (20.0-51.0); NEUTROPHILS 82 % (42.0-75.2)
[2021-12-24 07:23] LABS: PLATELET ESTIMATE NORMAL (NORMAL)
--- NOTE | 2021-12-24 13:53 | NUR ---
Patient still on mechanical vent
--- NOTE | 2021-12-24 18:08 | NUR ---
Sedation vacation not performed today as patient was having problems this morning maintaining a normotensive BP; did not feel patient was stable enough to not be adequately sedated.
--- NOTE | 2021-12-24 18:25 | NUR ---
Spoke with Yaneth, welder apprentice, about resuming tube feeds; per Dr. Jaffe we can resume tube feeds when signs of gastric bleeding has stopped. Currently patient is on low-intermittent suction and secretions are still brown in color. Did not resume tube feeds during day shift today. Will pass this along in report.
[2021-12-25] VITALS (1189 sets, daily range): BP systolic 83–161; BP diastolic 46–85; PULSE 52–70; TEMP 97–97.8; O2SAT 67–100
--- NOTE | 2021-12-25 03:31 | NUR ---
NOTED PATIENT ARTERIAL BP ELEVATED INITIALLY DECREASED DOSE OF LEVOPHED BY 0.04, 15 MINUTES LATER NOTED ARTERIAL BP HAD DECREASED TO LOWER THAN PARAMETERS INCREASED LEVO TO 0.06MCG/KG/MIN WITH NOTED INCREASE IN ARTERIAL BP TO 149/72
[2021-12-25 04:43] LABS: C-REACTIVE PROTEIN 0.41 mg/dL (0.00-0.50); MAGNESIUM 2.3 mg/dL (1.6-2.6); PHOSPHOROUS 3.6 mg/dL (2.3-4.7)
--- NOTE | 2021-12-25 05:20 | NUR ---
NOTED THAT PATIENT CONTINUES TO BE SENSITIVE TO TITRATION OF LEVOPHED DECREASED BY 0.01 TO 0.05MCG/KG/MIN WILL CONTINUE TO MONITOR ARTERIAL BP
--- NOTE | 2021-12-25 05:40 | NUR ---
PATIENT IS CURRENTLY PRONED AND SENSITIVE TO DECREASE IN SEDATION, NOTED THAT EVEN IF PUMP ALARMS FOR A SHORT PERIOD OF TIME (LESS THAN 5 MINUTES) PATIENT IS ABLE TO OPEN EYES AND ATTEMPTS TO LIFT HEAD OFF OF MATTRESS, OVERBREATHS VENT
[2021-12-25 05:50] LABS: ARTERIAL BLD GAS O2 SATURATION 98.4 % (92-100); ARTERIAL BLD GAS TCO2 CT 25.9; ARTERIAL BLOOD GAS BASE EXCESS 1.1 (-2-2); ARTERIAL BLOOD GAS HCO3 24.8 meq/L (22-26); ARTERIAL BLOOD GAS PCO2 36.5 mmHg (35-45); ARTERIAL BLOOD GAS pH 7.45 (7.35-7.45)
[2021-12-25 05:52] LABS: ARTERIAL BLOOD GAS PO2 122.7 mmHg (80-100)
--- NOTE | 2021-12-25 08:00 | NUR ---
PATIENT PLACED IN SUPINE POSITION. SCLEREDEMA IS SIGNIFICANT. NO OTHER SKIN ISSUES NOTED. VS REMAIN STABLE WITH ASSISTANCE OF LEVOPHED INFUSING. BLOODY SECRETIONS NOTED FROM ORAL CAVITY WHEN ORAL CARE IS PERFORMED.
[2021-12-25 08:52] LABS: HEMATOCRIT 40.5 % (42.0-52.0); HEMOGLOBIN 13.4 g/dl (13.5-18.0); MEAN CELL VOLUME 89 fl (80.0-100.0); MEAN CORPUSCULAR HEMOGLOBIN 30 pg (27-31); MEAN CORPUSCULAR HGB CONC 33 g/dl (33.0-37.0); PLATELET COUNT 179 K/mm3 (130-400); RED BLOOD COUNT 4.53 M/mm3 (4.20-5.60); REDCELL DISTRIBUTION WIDTH-CV 14.5 % (11.5-14.5)
[2021-12-25 09:08] LABS: CALCIUM 8.8 mg/dL (8.4-10.2); CREATININE, serum 0.76 mg/dL (0.72-1.25); POTASSIUM 4.5 mmol/L (3.5-4.5)
[2021-12-25 09:29] LABS: BAND 4 % (0-10); LYMPHOCYTE 5 % (20.0-51.0); METAMYELOCYTE 1 % (0-0); NEUTROPHILS 87 % (42.0-75.2); PLATELET ESTIMATE NORMAL (NORMAL)
--- NOTE | 2021-12-25 09:30 | NUR ---
Dr. Jaffe see's patient and then calls with update. Order received to restart tube feedings at goal rate and prone patient again in the afternoon.
--- NOTE | 2021-12-25 16:00 | NUR ---
Patient tolerated going back into prone position with no problem. Will continue to monitor and titrate medication as is possible.
--- NOTE | 2021-12-25 16:00 | NUR ---
MAINE SENT HOME WITH PATIENT'S . OTHER BELONGINGS REMAIN IN HIS ROOM
--- NOTE | 2021-12-25 18:18 | NUR ---
BLEEDING NOTED ON CHUX PAD UNDER PATIENT'S MOUTH. BRUISING/BLOOD BLISTER NOTED ON PATIENT'S TONGUE THIS MORNING WHEN ORAL CARE PERFORMED. TOOK EXTRA CARE TO TRY TO BE GENTLE DURING ORAL CARE SESSIONS TODAY. UNFORTUNATELY I SUSPECT THIS BLOOD BLISTER HAS POPPED AND OOZED OUT OF MOUTH ONTO CHUX. WILL KEEP MONITORING BLOODY DRAINAGE
[2021-12-26] VITALS (787 sets, daily range): BP systolic 81–199; BP diastolic 46–101; PULSE 56–84; TEMP 97.9–98.6; O2SAT 81–100
--- NOTE | 2021-12-26 00:45 | NUR ---
NOTED BY STAFF THAT PATIENT HAD INCREASED BLOODY SECRETIONS FROM ETT AND ORAL CAVITY, NOTED APPROX 100 ML OF BLOODY SECRETIONS IN SUCTION CANISTER, DISCUSSED WITH JENNIFFER CANAS ORDERS FOR CBC AT THIS TIME AND REQUESTED TO CALL HER WITH RESULTS
[2021-12-26 01:34] LABS: HEMATOCRIT 39.4 % (42.0-52.0); HEMOGLOBIN 13.4 g/dl (13.5-18.0); MEAN CELL VOLUME 89 fl (80.0-100.0); MEAN CORPUSCULAR HEMOGLOBIN 30 pg (27-31); MEAN CORPUSCULAR HGB CONC 34 g/dl (33.0-37.0); PLATELET COUNT 197 K/mm3 (130-400); RED BLOOD COUNT 4.44 M/mm3 (4.20-5.60); REDCELL DISTRIBUTION WIDTH-CV 14.8 % (11.5-14.5)
--- NOTE | 2021-12-26 02:00 | NUR ---
NOTIFIED JENNIFFER CANAS OF CRITICAL WBC COUNT, NEW ORDERS FOR BLOOD CULTURES, FLUID BOLUS AND ZOSYN
[2021-12-26 02:46] LABS: BAND 8 % (0-10); EOSINOPHIL 1 % (0-4); LYMPHOCYTE 17 % (20.0-51.0); NEUTROPHILS 68 % (42.0-75.2); PLATELET ESTIMATE NORMAL (NORMAL)
--- NOTE | 2021-12-26 04:45 | NUR ---
DURING PATIENT TURN NOTED THAT PATIENT HAD LARGE BLOOD CLOT IN ORAL CAVITY AND MODERATE AMOUNT OF BLOOD ON DRY KIMBERLY PAD COVERING PRONING PILLOW, NOTIFIED JENNIFFER CANAS OF THAT AND THAT THERE ALSO IS BLOOD PRESENT IN INITIAL SECTION OF VENT CIRCUT TUBING. ASKED THAT E CARE BE NOTIFIED, CALL MADE TO E CARE AND SPOKE WITH NURSE YOLANDA WHO WAS TO RELAY INFORMATION TO BUSINESS CONTINUITY STRATEGY DIRECTOR FOR HOSPITAL. NEW ORDERS GIVEN FOR PT/INR, PTT, FIBRINOGEN, AND LACTIC LAB WORK. AM LABS OBTAINED ALONG WITH ADDITONAL LABS ORDERED
--- NOTE | 2021-12-26 05:00 | NUR ---
SEDTION VACATION NOT PREFORMED AT THIS TIME DUE TO PATIENT BEING PRONED
[2021-12-26 05:13] LABS: HEMOGLOBIN 13.2 g/dl (13.5-18.0); MEAN CELL VOLUME 90 fl (80.0-100.0); MEAN CORPUSCULAR HEMOGLOBIN 30 pg (27-31); MEAN CORPUSCULAR HGB CONC 33 g/dl (33.0-37.0); MEAN PLATELET VOLUME 10.3 fl (7.4-10.4); PLATELET COUNT 206 K/mm3 (130-400); RED BLOOD COUNT 4.43 M/mm3 (4.20-5.60)
[2021-12-26 05:32] LABS: CALCIUM 8.2 mg/dL (8.4-10.2); CREATININE, serum 0.91 mg/dL (0.72-1.25); MAGNESIUM 2.2 mg/dL (1.6-2.6); PHOSPHOROUS 3.6 mg/dL (2.3-4.7); POTASSIUM 4.7 mmol/L (3.5-4.5)
[2021-12-26 05:32] LABS: ARTERIAL BLD GAS O2 SATURATION 95.4 % (92-100); ARTERIAL BLD GAS TCO2 CT 26.5; ARTERIAL BLOOD GAS HCO3 25.2 meq/L (22-26); ARTERIAL BLOOD GAS PCO2 43.2 mmHg (35-45); ARTERIAL BLOOD GAS PO2 80.4 mmHg (80-100); ARTERIAL BLOOD GAS pH 7.38 (7.35-7.45)
[2021-12-26 06:00] LABS: PARTIAL THROMBOPLASTIN TIME 35.2 SECONDS (26.0-37.0)
--- NOTE | 2021-12-26 06:00 | NUR ---
NOTED PATIENT BP DECREASING TITRATION OF LEVOPHED TO ATTAIN MAP AND SBP GOALS
[2021-12-26 06:05] LABS: FIBRINOGEN < 100 mg/dL (200-450)
[2021-12-26 06:06] LABS: PROTHROMBIN TIME 15.2 SECONDS (9.7-12.8)
[2021-12-26 06:07] LABS: ANISOCYTOSIS 1+; BAND 8 % (0-10); EOSINOPHIL 3 % (0-4); INR 1.4 (0.8-3.0); LYMPHOCYTE 8 % (20.0-51.0); NEUTROPHILS 73 % (42.0-75.2); PLATELET ESTIMATE NORMAL (NORMAL)
--- NOTE | 2021-12-26 06:10 | NUR ---
NOTIFIED FROM [facility] OF CRITICAL FIBRINOGEN LEVEL OF LESS THAN 100, GIVEN BRIEF HISTORY AND REPORTED BLEEDING FROM ORAL CAVITY AND INTO ET TUBE AND APPROXIMATE AMOUNTS. STATED TO WAIT FOR INR LEVEL AND IF IT WAS HIGH WOULD POTENTIALLY ORDER FFP'S
--- NOTE | 2021-12-26 06:30 | NUR ---
NOTED PATIENT'S INR WAS 1.4 SAME PREVIOUS VALUE DID NOT CALL E DANELLE BAZAN BACK WITH THIS RESULT DUE TO PREVIOUS STATEMENT OF ORDERING FFP'S IF ELEVATED
[2021-12-26 10:40] LABS: C-REACTIVE PROTEIN 0.22 mg/dL (0.00-0.50)
--- NOTE | 2021-12-26 18:30 | NUR ---
Received report from NICOLE Loo. All medications verified and all questions answered. VSS. Patient intubated and sedated. ON AC mode with ventilator settings of 24rr, 55% fio2, peep of 10 and 500tv. Fentanyl gtt running at 3.8mls/hr and propofol gtt running at 18.7mls/hr. Levophed running at 13.6mls/hr. Salazar patent, set to dependent drainage with clear yellow urine. Patient laying in supine position. No concerns or complaints noted at this time. Will resume care of patient.
[2021-12-27] VITALS (684 sets, daily range): BP systolic 71–170; BP diastolic 38–101; PULSE 59–84; TEMP 97.4–98.6; O2SAT 91–100
[2021-12-27 03:24] LABS: ARTERIAL BLOOD GAS BASE EXCESS 1.7 (-2-2); ARTERIAL BLOOD GAS HCO3 26.7 meq/L (22-26); ARTERIAL BLOOD GAS PCO2 43.6 mmHg (35-45); ARTERIAL BLOOD GAS PO2 68.3 mmHg (80-100); ARTERIAL BLOOD GAS pH 7.41 (7.35-7.45)
--- NOTE | 2021-12-27 04:00 | NUR ---
This RN removed patient left radial art line. All sutures cut and removed. Art line catheter intact upon removal. This RN held manual pressure for 7 minutes to insertion site. three 4x4s placed over insertion site and tegaderm placed on top. CMS intact. Art line waveforms becoming dampened and not getting good reading based on waveform. Pressures greatly different from NIBP.
[2021-12-27 04:44] LABS: HEMOGLOBIN 11.9 g/dl (13.5-18.0); MEAN CELL VOLUME 93 fl (80.0-100.0); MEAN CORPUSCULAR HEMOGLOBIN 30 pg (27-31); MEAN CORPUSCULAR HGB CONC 32 g/dl (33.0-37.0); PLATELET COUNT 179 K/mm3 (130-400); RED BLOOD COUNT 3.94 M/mm3 (4.20-5.60); REDCELL DISTRIBUTION WIDTH-CV 15.1 % (11.5-14.5)
--- NOTE | 2021-12-27 05:03 | NUR ---
This RN attempted to titrate sedation medication down throughout night. Patient became agitated and started to get restless and cough and not tolerate the vent. Sedation vacation not attempted at this time.
[2021-12-27 05:08] LABS: CALCIUM 8.1 mg/dL (8.4-10.2); CREATININE, serum 0.82 mg/dL (0.72-1.25); POTASSIUM 4.8 mmol/L (3.5-4.5)
[2021-12-27 05:26] LABS: HEMATOCRIT 36.8 % (42.0-52.0); PROTHROMBIN TIME 11.3 SECONDS (9.7-12.8)
[2021-12-27 07:57] LABS: EOSINOPHIL 2 % (0-4); LYMPHOCYTE 13 % (20.0-51.0); NEUTROPHILS 82 % (42.0-75.2)
[2021-12-27 07:59] LABS: ANISOCYTOSIS 1+; HYPOCHROMIA 1+; PLATELET ESTIMATE NORMAL (NORMAL)
--- NOTE | 2021-12-27 09:26 | NUR ---
Vancomycin Initial Dosing Pharmacy Note Ordering provider: Neda Richard DO Indication/duration: Empiric, 7 days LABS: SCr 0.82, CrCl~81, GFR 92 Recommendation: Will give Vancomycin 1.75 gm IV x1 loading dose, then Vancomycin 1.25 gm IV q12h. Pharmacy will continue to closely monitor and check a trough on 12/29/21. Loading dose: 1.75 grams Maintenance dose: 1.25 grams every 12 hours Trough goal: 15-20 ug/mL
--- NOTE | 2021-12-27 10:07 | NUR ---
structural steel ironworker present while physician contacts patient's . All questions and concerns addressed by physician.
--- NOTE | 2021-12-27 14:00 | NUR ---
PT TO ED TO BANKRUPTCY ASSISTANT PT PHONE. UPDATE GIVEN. PTS PAULINE VERY THANKFUL FOR THE CARE WE ARE GIVING.
--- NOTE | 2021-12-27 19:39 | NUR ---
Received report from NICOLE Loo. All medications verified and all questions answered. Patient intubated and sedated with fentanyl gtt running at 3.8mls/hr, propofol gtt running at 21.5mls/hr and levophed gtt running at 13.6mls/hr. Salazar catheter patent to dependent drainage with clear yellow urine. ETT at 26 at the teeth, OG at 63cm. Tube feeds running at 50mls/hr. Ventilator settings on AC mode with 500TV, peep of 10, 24rr and fio2 55%. Patient unable to follow commands at this time. VSS. Will resume care of patient at this time.
[2021-12-28] VITALS (692 sets, daily range): BP systolic 72–130; BP diastolic 49–85; PULSE 63–87; TEMP 98.4–99.5; O2SAT 86–100
[2021-12-28 02:56] LABS: ARTERIAL BLD GAS O2 SATURATION 90.2 % (92-100); ARTERIAL BLD GAS TCO2 CT 31.7; ARTERIAL BLOOD GAS BASE EXCESS 4.3 (-2-2); ARTERIAL BLOOD GAS HCO3 30.2 meq/L (22-26); ARTERIAL BLOOD GAS PCO2 50.3 mmHg (35-45)
[2021-12-28 03:44] LABS: HEMOGLOBIN 11.7 g/dl (13.5-18.0); MEAN CELL VOLUME 92 fl (80.0-100.0); MEAN CORPUSCULAR HEMOGLOBIN 31 pg (27-31); MEAN CORPUSCULAR HGB CONC 33 g/dl (33.0-37.0); MEAN PLATELET VOLUME 10.5 fl (7.4-10.4); PLATELET COUNT 157 K/mm3 (130-400); RED BLOOD COUNT 3.82 M/mm3 (4.20-5.60); REDCELL DISTRIBUTION WIDTH-CV 15.3 % (11.5-14.5)
[2021-12-28 03:52] LABS: HEMATOCRIT 35.3 % (42.0-52.0)
[2021-12-28 04:16] LABS: ANISOCYTOSIS 1+; BAND 3 % (0-10); EOSINOPHIL 1 % (0-4); LYMPHOCYTE 5 % (20.0-51.0); METAMYELOCYTE 2 % (0-0); NEUTROPHILS 85 % (42.0-75.2); PLATELET ESTIMATE NORMAL (NORMAL)
[2021-12-28 04:17] LABS: CALCIUM 8.3 mg/dL (8.4-10.2); CREATININE, serum 0.82 mg/dL (0.72-1.25); MAGNESIUM 2.3 mg/dL (1.6-2.6); PHOSPHOROUS 3.3 mg/dL (2.3-4.7); POTASSIUM 4.9 mmol/L (3.5-4.5)
--- NOTE | 2021-12-28 05:01 | NUR ---
Sedation vacation started at 0400. Propofol gtt decreased. At this time patient is beginning to love extremities more but unable to open eyes or follow commands. Vital signs remain stable. Patient tolerating ventilator.
--- NOTE | 2021-12-28 16:30 | NUR ---
SHIFT REPORT RECEIVED FROM NICOLE HOLLAND. BILATERAL WRIST RESTRAINTS IN PLACE. FC TO DEPENDENT DRAINAGE. 8.[address] AT 26CM AT LIP. OG IN PLACE; 65CM AT TEETH; INFUSING PIVOT 1.5 AT 50ML/HR. JEAN PICC IN PLACE; SEE GTT FLOW SHEET FOR CURRENT INFUSIONS AND RATES. PT APPEARS TO BE RESTING COMFORTABLY. VITAL SIGNS STABLE.
--- NOTE | 2021-12-28 17:31 | NUR ---
ETT HOLISTER CHANGED WITH ASSISTANCE OF RT. PT'S CHEN ALSO CLIPPED WITH CLIPPED. REMOVING PREVIOUS ETT HOLISTER REVEALED QUARTER SIZED STAGE 2 PRESSURE ULCER TO RIGHT CHEEK. AREA CLEANED WITH 4X4 AND STERILE WATER. LEFT OPEN TO AIR.
--- NOTE | 2021-12-28 17:36 | NUR ---
SEDATION VACATION NOT COMPLETED THIS EVENING DUE TO DR. GONZALEZ PLACING ALL SEDATION ON STAND BY AT APPROX 0830. AFTER SEDATION WAS ON STAND BY FOR APPROX 30 MINUTES, PT WAS ABLE TO OPEN EYES AND RESPOND TO PAIN, BUT DID NOT FOLLOW COMMANDS. SEDATION TURNED BACK ON AND PLACED AT PREVIOUS SETTINGS.
--- NOTE | 2021-12-28 18:42 | NUR ---
THIS NURSE SPOKE WITH PT'S , SHUBHAM. UPDATE WAS GIVEN ON PT AND POC DISCUSSED. SHUBHAM VERBALIZED UNDERSTANDING AND AGREES WITH PLAN.
--- NOTE | 2021-12-28 19:56 | NUR ---
REPORT GIVEN TO NICOLE LUI.
[2021-12-29] VITALS (595 sets, daily range): BP systolic 63–160; BP diastolic 37–83; PULSE 63–96; TEMP 97.7–98.7; O2SAT 83–100
[2021-12-29 05:48] LABS: ARTERIAL BLD GAS O2 SATURATION 91.8 % (92-100); ARTERIAL BLD GAS TCO2 CT 28.2; ARTERIAL BLOOD GAS BASE EXCESS 0.6 (-2-2); ARTERIAL BLOOD GAS HCO3 26.7 meq/L (22-26); ARTERIAL BLOOD GAS PCO2 48.9 mmHg (35-45); ARTERIAL BLOOD GAS PO2 62.9 mmHg (80-100); ARTERIAL BLOOD GAS pH 7.36 (7.35-7.45)
--- NOTE | 2021-12-29 06:00 | NUR ---
SEDATION VACATION INITIATED AT THIS TIME WITH A FEW MINUTES OF DECREASE OF SEDTION PATIENT IS ABLE TO OPEN EYES TO VOICE ALTHOUGH DOES NOT TRACK, UNABLE TO FOLLOW COMMANDS AT THIS TIME WILL CONTINUE TO MONITOR
[2021-12-29 06:33] LABS: HEMATOCRIT 37.6 % (42.0-52.0); MEAN CELL VOLUME 94 fl (80.0-100.0); MEAN CORPUSCULAR HEMOGLOBIN 30 pg (27-31); MEAN CORPUSCULAR HGB CONC 32 g/dl (33.0-37.0); MEAN PLATELET VOLUME 10.4 fl (7.4-10.4); PLATELET COUNT 144 K/mm3 (130-400); RED BLOOD COUNT 3.99 M/mm3 (4.20-5.60); REDCELL DISTRIBUTION WIDTH-CV 15.8 % (11.5-14.5)
[2021-12-29 06:50] LABS: CALCIUM 8.2 mg/dL (8.4-10.2); CREATININE, serum 0.84 mg/dL (0.72-1.25); POTASSIUM 4.6 mmol/L (3.5-4.5)
[2021-12-29 06:56] LABS: BAND 4 % (0-10); EOSINOPHIL 5 % (0-4); HYPOCHROMIA 1+; LYMPHOCYTE 5 % (20.0-51.0); NEUTROPHILS 81 % (42.0-75.2); NUCLEATED RED BLOOD CELL 1 (0-6); PLATELET ESTIMATE NORMAL (NORMAL)
[2021-12-29 06:57] LABS: ANISOCYTOSIS 1+
[2021-12-30] VITALS (79 sets, daily range): BP systolic 113–144; BP diastolic 60–79; PULSE 67–80; TEMP 98.1–98.7; O2SAT 95–100
[2021-12-30 05:18] LABS: ARTERIAL BLD GAS O2 SATURATION 92.2 % (92-100); ARTERIAL BLD GAS TCO2 CT 31.9; ARTERIAL BLOOD GAS BASE EXCESS 3.8 (-2-2); ARTERIAL BLOOD GAS HCO3 30.3 meq/L (22-26); ARTERIAL BLOOD GAS PCO2 53.7 mmHg (35-45); ARTERIAL BLOOD GAS pH 7.37 (7.35-7.45)
[2021-12-30 05:29] LABS: BASO # 0.1 K/mm3 (0.0-0.2); BASO % 0.3 % (0.0-2.0); EOS % 5.8 % (0.0-4.0); GRAN # 14.4 K/mm3 (1.4-6.5); GRAN % 82.1 % (42.2-75.2); HEMOGLOBIN 11.5 g/dl (13.5-18.0); LYMPH % 5.5 % (20.0-51.0); MEAN CELL VOLUME 94 fl (80.0-100.0); MEAN CORPUSCULAR HEMOGLOBIN 31 pg (27-31); MEAN CORPUSCULAR HGB CONC 33 g/dl (33.0-37.0); MEAN PLATELET VOLUME 11.1 fl (7.4-10.4); MONO # 0.9 K/mm3 (0.1-0.6); MONO % 4.9 % (1.7-9.3); PLATELET COUNT 127 K/mm3 (130-400); RED BLOOD COUNT 3.77 M/mm3 (4.20-5.60); REDCELL DISTRIBUTION WIDTH-CV 15.8 % (11.5-14.5)
[2021-12-30 05:48] LABS: HEMATOCRIT 35.3 % (42.0-52.0)
[2021-12-30 05:51] LABS: CALCIUM 8.3 mg/dL (8.4-10.2); CREATININE, serum 0.78 mg/dL (0.72-1.25); POTASSIUM 4.2 mmol/L (3.5-4.5)
[2021-12-30 05:54] LABS: INR 1.2 (0.8-3.0); PROTHROMBIN TIME 12.8 SECONDS (9.7-12.8)
--- NOTE | 2021-12-30 07:36 | NUR ---
SEDATION VACATION NOT DONE THIS AM DUE TO PATIENT OVERBREATHING VENT BEFORE STARTING SEDATION VACATION
[2021-12-31] VITALS (439 sets, daily range): BP systolic 94–129; BP diastolic 55–71; PULSE 67–89; TEMP 97.9–99.3; O2SAT 75–100
[2021-12-31 03:41] LABS: ARTERIAL BLD GAS O2 SATURATION 94.3 % (92-100); ARTERIAL BLD GAS TCO2 CT 30.5; ARTERIAL BLOOD GAS BASE EXCESS 2.9 (-2-2); ARTERIAL BLOOD GAS HCO3 28.9 meq/L (22-26); ARTERIAL BLOOD GAS PCO2 50.8 mmHg (35-45); ARTERIAL BLOOD GAS PO2 71.1 mmHg (80-100); ARTERIAL BLOOD GAS pH 7.37 (7.35-7.45)
--- NOTE | 2021-12-31 05:00 | NUR ---
PATIENT IS PRONE AT THIS TIME, NO SEDATION VACATION PREFORMED, ALSO NOTED PATIENT HAS BLOODY SECRETIONS IN HIS ET TUBE
[2021-12-31 05:16] LABS: BASO # 0.1 K/mm3 (0.0-0.2); BASO % 0.4 % (0.0-2.0); EOS # 0.9 K/mm3 (0.0-0.7); EOS % 5.1 % (0.0-4.0); GRAN # 15.6 K/mm3 (1.4-6.5); GRAN % 85.6 % (42.2-75.2); LYMPH # 0.7 K/mm3 (1.2-3.4); LYMPH % 3.7 % (20.0-51.0); MEAN CELL VOLUME 94 fl (80.0-100.0); MEAN CORPUSCULAR HEMOGLOBIN 30 pg (27-31); MEAN CORPUSCULAR HGB CONC 32 g/dl (33.0-37.0); MEAN PLATELET VOLUME 10.9 fl (7.4-10.4); MONO # 0.8 K/mm3 (0.1-0.6); MONO % 4.4 % (1.7-9.3); PLATELET COUNT 111 K/mm3 (130-400); RED BLOOD COUNT 3.68 M/mm3 (4.20-5.60); REDCELL DISTRIBUTION WIDTH-CV 15.9 % (11.5-14.5)
[2021-12-31 05:23] LABS: HEMATOCRIT 34.7 % (42.0-52.0)
[2021-12-31 05:33] LABS: CALCIUM 8.5 mg/dL (8.4-10.2); CREATININE, serum 0.73 mg/dL (0.72-1.25); MAGNESIUM 2.1 mg/dL (1.6-2.6); PHOSPHOROUS 3.9 mg/dL (2.3-4.7); POTASSIUM 4.2 mmol/L (3.5-4.5)
[2021-12-31 05:37] LABS: INR 1.2 (0.8-3.0); PROTHROMBIN TIME 13.2 SECONDS (9.7-12.8)
[2021-12-31 05:40] LABS: PARTIAL THROMBOPLASTIN TIME 27.7 SECONDS (26.0-37.0)
--- NOTE | 2021-12-31 19:47 | NUR ---
Received report from NICOLE Loo. All medications verified and all questions answered. Patient intubated and sedated. Fentanyl gtt running at 6.3mls/hr, propofol gtt rnning at 21.8mls/hr and levophed gtt running at 19.5mls/hr. VSS. Ventilator settings of 10 of peep, 500 TV, 75% fio2 and rate 24. Salazar patent to dependent drainage. Tube feeds running at 47mls/hr. Patient in prone position. Will resume care of patient at this time.
[2022-01-01] VITALS (484 sets, daily range): BP systolic 69–130; BP diastolic 45–74; PULSE 66–99; TEMP 98.4–99; O2SAT 79–100
[2022-01-01 04:07] LABS: ARTERIAL BLD GAS TCO2 CT 31.2; ARTERIAL BLOOD GAS BASE EXCESS 2.8 (-2-2); ARTERIAL BLOOD GAS HCO3 29.5 meq/L (22-26); ARTERIAL BLOOD GAS PCO2 55.7 mmHg (35-45); ARTERIAL BLOOD GAS PO2 117.3 mmHg (80-100); ARTERIAL BLOOD GAS pH 7.34 (7.35-7.45)
--- NOTE | 2022-01-01 05:09 | NUR ---
SEDATION VACATION NOT ATTEMPTED AT THIS TIME D/T PATIENT BEING IN PRONED POSTION.
[2022-01-01 06:39] LABS: BASO # 0.1 K/mm3 (0.0-0.2); BASO % 0.7 % (0.0-2.0); EOS # 1.1 K/mm3 (0.0-0.7); EOS % 7.6 % (0.0-4.0); GRAN # 11.9 K/mm3 (1.4-6.5); GRAN % 81.5 % (42.2-75.2); HEMOGLOBIN 10.1 g/dl (13.5-18.0); LYMPH # 0.7 K/mm3 (1.2-3.4); LYMPH % 4.8 % (20.0-51.0); MEAN CELL VOLUME 95 fl (80.0-100.0); MEAN CORPUSCULAR HEMOGLOBIN 31 pg (27-31); MEAN CORPUSCULAR HGB CONC 32 g/dl (33.0-37.0); MEAN PLATELET VOLUME 11.6 fl (7.4-10.4); MONO # 0.7 K/mm3 (0.1-0.6); MONO % 4.9 % (1.7-9.3); PLATELET COUNT 99 K/mm3 (130-400); RED BLOOD COUNT 3.27 M/mm3 (4.20-5.60); REDCELL DISTRIBUTION WIDTH-CV 16.2 % (11.5-14.5)
[2022-01-01 06:48] LABS: CALCIUM 8.5 mg/dL (8.4-10.2); CREATININE, serum 0.73 mg/dL (0.72-1.25); POTASSIUM 4.4 mmol/L (3.5-4.5)
[2022-01-01 06:53] LABS: HEMATOCRIT 31.2 % (42.0-52.0)
--- NOTE | 2022-01-01 08:08 | NUR ---
ALARMS TESTED AND WORKING.
--- NOTE | 2022-01-01 14:40 | NUR ---
Noticed this am that patient was showing afib on the monitor. Dr. Rubio notified. New orders for amio po to be increased to 400 mg BID.
--- NOTE | 2022-01-01 15:59 | NUR ---
RT UNAV AT THIS TIME
--- NOTE | 2022-01-01 19:44 | NUR ---
Received report from NICOLE Loo. All medications verified and all questions answered. VSS. Patient intubated and sedated on airoborne/contact precautions d/t positive covid status. Ventilator settings of 530TV, peep of 12.5, 100% fio2 and 24rr on AC mode. VSS. Fentanyl gtt running at 6.3mls/hr, versed gtt running at 4 mls/hr and levophed gtt running at 25.3mls/hr. Salazar patent to dependent drainage with yellow sediment urine noted. Rectal tube in place. PAtient in prone position facing right. Will resume care of patient at this time.
[2022-01-02] VITALS (270 sets, daily range): BP systolic 124–143; BP diastolic 67–78; PULSE 79–92; TEMP 98.7–99.2; O2SAT 78–98
[2022-01-02 02:52] LABS: ARTERIAL BLD GAS O2 SATURATION 94.5 % (92-100); ARTERIAL BLD GAS TCO2 CT 28.8; ARTERIAL BLOOD GAS BASE EXCESS 0.5 (-2-2); ARTERIAL BLOOD GAS HCO3 27.2 meq/L (22-26); ARTERIAL BLOOD GAS PCO2 53.3 mmHg (35-45); ARTERIAL BLOOD GAS PO2 73.9 mmHg (80-100); ARTERIAL BLOOD GAS pH 7.33 (7.35-7.45)
--- NOTE | 2022-01-02 05:17 | NUR ---
Sedation vacation not attempted at this time d/t patient being unstable and in prone position.
[2022-01-02 05:36] LABS: BASO # 0.1 K/mm3 (0.0-0.2); BASO % 0.4 % (0.0-2.0); EOS # 1.4 K/mm3 (0.0-0.7); EOS % 8.6 % (0.0-4.0); GRAN # 12.5 K/mm3 (1.4-6.5); GRAN % 79.2 % (42.2-75.2); LYMPH # 0.9 K/mm3 (1.2-3.4); MEAN CELL VOLUME 95 fl (80.0-100.0); MEAN CORPUSCULAR HEMOGLOBIN 31 pg (27-31); MEAN CORPUSCULAR HGB CONC 32 g/dl (33.0-37.0); MEAN PLATELET VOLUME 11.6 fl (7.4-10.4); MONO # 0.9 K/mm3 (0.1-0.6); MONO % 5.4 % (1.7-9.3); PLATELET COUNT 101 K/mm3 (130-400); RED BLOOD COUNT 3.56 M/mm3 (4.20-5.60); REDCELL DISTRIBUTION WIDTH-CV 16.2 % (11.5-14.5)
[2022-01-02 05:37] LABS: HEMATOCRIT 33.9 % (42.0-52.0)
[2022-01-02 05:49] LABS: ALBUMIN 2.4 gm/dL (3.4-4.8); BILIRUBIN,TOTAL 0.7 mg/dL (0.2-1.2); CALCIUM 8.9 mg/dL (8.4-10.2); CREATININE, serum 0.7 mg/dL (0.72-1.25); MAGNESIUM 2.1 mg/dL (1.6-2.6); PHOSPHOROUS 3.6 mg/dL (2.3-4.7); POTASSIUM 4.3 mmol/L (3.5-4.5); TOTAL PROTEIN 5.5 gm/dL (6.2-8.1)
--- NOTE | 2022-01-02 09:18 | NUR ---
farrowing worker present during phone conversation between Dr. Jaffe and patient's . Dr. Jaffe asks if she is able to come to the hospital to have goals of care conversation.
--- NOTE | 2022-01-02 09:33 | NUR ---
Patient's and son arrive to unit. Introduced myself and offered support. ICU director and nursing staff tend to family.
--- NOTE | 2022-01-02 09:53 | NUR ---
family in room with patient at this time, due to desaturation in the 70's, peep was increased to 20 at this time
--- NOTE | 2022-01-02 11:56 | NUR ---
PATIENT EXTUBATED AT 1112 AFTER COMFORT MEDICATIONS WERE GIVEN.
--- NOTE | 2022-01-02 12:00 | NUR ---
Patient's family arrived this morning to see patient and discuss treatment plan. Patient's family decided to withdraw care and patient was extubated at 1112. Comfort care medications were given, and family came back in to the room and patient shortly thereafter, with time of at 1126. Patients belongings sent with , with the exception of his wedding band, which was on his finger at the time of his departure from the ICU.
--- NOTE | 2022-01-02 12:08 | NUR ---
Call received from ICU charge nurse NICOLE Smith that pt at 1126. Confirmed pt by 2 RNs and time of recorded as 1126, family at bedside and witnesses. Dr. Richard in unit and notified of patient expiration and confirmed . Pt belongings given to Amy who left prior to my arrival. Called [facility] , discussed with them and pt is not a candidate for transplant. Pts family requested home [facility] in [place]. Called and they will be here to warehouse picker patient shortly. Family notified of this and aware of plan.
== END 2022-01-02 12:41 | disposition expired | DRG 207 ==
LOC: COL.ER 08:34 → MEDICAL 11:44 → ICU 12-19 00:35
PROVIDERS: Emergency Medicine; Internal Medicine; Internal Medicine Pulmonary Disease; Nurse Practitioner Family; Student in an Organized Health Care Education/Training Program; ADMIT Internal Medicine
PROC: XW033E5 Introduction of Remdesivir Anti-infective into Peripheral Vein, Percutaneous Approach, New Technology Group 5 (ICD-10-PCS; 2021-12-19)
PROC: 5A09457 Assistance with Respiratory Ventilation, 24-96 Consecutive Hours, Continuous Positive Airway Pressure (ICD-10-PCS; 2021-12-19)
PROC: 3E0DX3Z Introduction of Anti-inflammatory into Mouth and Pharynx, External Approach (ICD-10-PCS; 2021-12-19)
PROC: 02HV33Z Insertion of Infusion Device into Superior Vena Cava, Percutaneous Approach (ICD-10-PCS; 2021-12-19)
PROC: 5A1955Z Respiratory Ventilation, Greater than 96 Consecutive Hours (ICD-10-PCS; principal; 2021-12-23)
PROC: 0BH17EZ Insertion of Endotracheal Airway into Trachea, Via Natural or Artificial Opening (ICD-10-PCS; 2021-12-23)
PROC: 03HY32Z Insertion of Monitoring Device into Upper Artery, Percutaneous Approach (ICD-10-PCS; 2021-12-23)
PROC: 30233K1 Transfusion of Nonautologous Frozen Plasma into Peripheral Vein, Percutaneous Approach (ICD-10-PCS; 2021-12-30)
PROC: 30233D1 Transfusion of Nonautologous Pathogen Reduced Cryoprecipitated Fibrinogen Complex into Peripheral Vein, Percutaneous Approach (ICD-10-PCS; 2021-12-30)
DX: U07.1 COVID-19 (principal); J12.82 Pneumonia due to coronavirus disease 2019; J96.01 Acute respiratory failure with hypoxia; E87.1 Hypo-osmolality and hyponatremia; E87.2 Acidosis; F10.139 Alcohol abuse with withdrawal, unspecified; I48.92 Unspecified atrial flutter; R78.81 Bacteremia; J44.0 Chronic obstructive pulmonary disease with (acute) lower respiratory infection; I24.8 Other forms of acute ischemic heart disease; R04.2 Hemoptysis; Z66 Do not resuscitate; I48.91 Unspecified atrial fibrillation; I10 Essential (primary) hypertension; I73.9 Peripheral vascular disease, unspecified; K59.00 Constipation, unspecified; R00.1 Bradycardia, unspecified; G47.33 Obstructive sleep apnea (adult) (pediatric); N40.0 Benign prostatic hyperplasia without lower urinary tract symptoms; H05.232 Hemorrhage of left orbit; I95.9 Hypotension, unspecified; K57.90 Diverticulosis of intestine, part unspecified, without perforation or abscess without bleeding; I08.1 Rheumatic disorders of both mitral and tricuspid valves; E87.8 Other disorders of electrolyte and fluid balance, not elsewhere classified; R79.89 Other specified abnormal findings of blood chemistry; Z95.5 Presence of coronary angioplasty implant and graft; Z96.652 Presence of left artificial knee joint; Z87.891 Personal history of nicotine dependence
CPT/HCPCS: 99223-AI; 99232-AI; 99233-AI; 99238; A4314; C1751; C9113; J0248; J0330; J0360; J0610; J0696; J1100; J1644; J1650; J2060; J2250; J2270; J2543; J2704; J3010; J3370; J3475; J7030; J7040; J7050; J7060; J7131; J8540; P9012; Q0249; Q9967